=== PATIENT | female | born 1965 | race Two or more races ===

== ENCOUNTER → 2024-11-05 | Day surgery (SDC) | payer MEDICAID ==
[2024-11-02 10:01] LABS: Urine Bacteria None Seen /hpf (None Seen); Urine Blood Negative /uL (Negative); Urine Clarity Clear (Clear); Urine Color Light-Yellow (Yellow); Urine Protein, UAD Negative (Negative); Urine Specific Gravity 1.018 (1.001-1.035); Urine Squamous Epithelial Cell FEW /hpf (<5); Urine Urobilinogen Normal (Negative); Urine WBC < 1 /HPF (0-5); Urine pH 5.5 (5.0-9.0)
[~2024-11-05] VITALS: Ht 147.3 cm; Wt 92.1 kg
[~2024-11-05] MED LIST: AMLO1TAB22 PO; CALC625T47 PO; DULO20CA PO; LAMO25TA2 PO; LOSA-535 PO; MIDAZOLAM HCL 2MG/2ML 2ml VIAL (1mg/ml) ONE; PANT40TA2 PO; PROPOFOL 10 MG/ML 20 ML IV ONE
[2024-11-05 11:05] VITALS: PULSE 77; RESP 14; TEMP 98.5; O2SAT 95
--- NOTE | 2024-11-05 11:07 | DVHHP2 ---
GI H&P Pre-Op Assessment Date: 11/05/24 Chief complaint: colon cancer screening HPI: per clinic note Past medical history: per clinic note Past surgical history: per clinic note Family history: per clinic note Physical exam: General: NAD, AAOX3 HEENT: PERRL, no scleral icterus, normal hearing, gums without lesions or bleeding, oropharynx clear without erythema or exudate. Neck: Supple without enlargement of the thyroid, or lymphadenopathy. Chest: Normal size and shape, no tenderness, lung gates clear to auscultation and percussion, nonlabored breathing. Heart: RRR, no murmur Abdomen: non-distended, no tenderness to palpation, +BS, no hepatosplenomegaly Extremities: no edema Neurological: CN II-XII intact, sensation intact in all extremities, 5+ strength in all extremities Skin: No rashes, No jaundice Assessment: - colon cancer screening Plan: - Colonoscopy - Risks (bleeding, infection, perforation, reaction to sedation medications and cardiopulmonary arrest) and benefit of the procedure were explained to patient. Patient agrees to undergo the procedure. DARWIN SAVAGE MD November 05, 2024 11:07
--- NOTE | 2024-11-05 11:08 | DVHOP2 ---
Operative Report DATE OF OPERATION: 11/05/24 PROCEDURE: Colonoscopy. PREOPERATIVE INDICATION: The patient is a 59 -year-old female undergoing colonoscopy for colon cancer screening. POSTOPERATIVE DIAGNOSES: 1. Diverticulosis in the left colon. 2. Small internal hemorrhoids PROCEDURE PERFORMED BY: Ernesto Giles M.D. SCOPE: Olympus videocolonoscope. ASA CLASS: 3 PREOPERATIVE MEDICATIONS: MAC with Dr Trevino PROCEDURE IN DETAIL: After obtaining an informed consent, the patient was placed on left lateral decubitus position. She was then sedated with the above medications. A rectal examination was performed that was normal. The colonoscope was then passed through the anus into the rectosigmoid and through the descending, transverse, and ascending colon up to the cecum with visualization of the appendiceal orifice, base of the cecum and the ileocecal valve. No mass or polyp was observed. There were diverticulosis in the left colon. There were small internal hemorrhoids. The colonoscope was then withdrawn. The patient tolerated the procedure well without difficulty. WITHDRAWAL TIME: 6 minutes QUALITY OF THE PREP: [place] Bowel Prep score: 6 COMPLICATIONS : None SPECIMENS: None DISPOSITION: D/C to home PLAN: 1. Repeat colonoscopy in 10 years for colon cancer screening. ERNESTO GILES MD November 05, 2024 11:08
--- NOTE | 2024-11-05 11:08 | DVHDS2 ---
Physician Discharge Progress N Final Diagnosis: Diverticulosis, internal hemorrhoids Operations or Procedures: Operations or Procedures Colonoscopy Condition on Discharge: Good Disposition: Home Discharge Instructions: Diet: Regular Activity: No Restrictions, As Tolerated Medications: Resume previous home medications Follow Up Care: Discharge Statement: "Patient was advised to return to the ER or call 911 if any headaches, dizziness, shortness of breath, chest pain, abdominal pain, bleeding, fevers, or worsening of medical condition. Patient was counseled about treatment plan, medications, possible side effects, patientverbalized understanding. All questions were answered to the best of my ability. This discharge took greater then 30 minutes in planning, reviewing doc umentation, counseling the patient, and discussing with other team members." DARWIN SAVAGE MD November 05, 2024 11:08
[2024-11-05 11:30] VITALS: BP 122/67; PULSE 58; RESP 13; O2SAT 98
== END | disposition home or self-care (01) ==
LOC: GI 08:17
PROVIDERS: ATTEND Internal Medicine Gastroenterology
DX: Z12.11 Encounter for screening for malignant neoplasm of colon (principal); K57.30 Diverticulosis of large intestine without perforation or abscess without bleeding; K64.8 Other hemorrhoids; K21.9 Gastro-esophageal reflux disease without esophagitis; I10 Essential (primary) hypertension; J44.9 Chronic obstructive pulmonary disease, unspecified; F31.89 Other bipolar disorder; Z79.899 Other long term (current) drug therapy; Z98.890 Other specified postprocedural states
CPT/HCPCS: 45378; 81001; J2250; J2704